=== PATIENT | male | born 1990 | race African-American/Black ===

== ENCOUNTER 2024-10-26 18:40 | Inpatient (IN) | payer MEDICAID, OTHER ==
[2024-10-26] MEDS ORDERED: MAG HYDROX/AL HYDROX/SIMETH 355 ML BOTTLE PO PRN (20:01)
[2024-10-26] MEDS ORDERED: ACETAMINOPHEN TAB 325 MG TAB PO PRN (20:01)
[2024-10-26] MEDS ORDERED: MAGNESIUM HYDROXIDE 2,400 MG/30 ML CUP PO PRN (20:01)
[2024-10-26] MEDS ORDERED: IBUPROFEN 600 MG TAB PO PRN (20:01)
[2024-10-26] MEDS ORDERED: HALOPERIDOL LACTATE 5 MG/ML 1 ML VIAL IM PRN (20:03)
[2024-10-26] MEDS ORDERED: LORazepam 2 MG/ML INJ IM PRN (20:03)
[2024-10-27] MEDS: haloperidoL 5 MG TAB PO PRN (01:01)
[2024-10-27] MEDS: LORazepam 1 MG TAB PO PRN (01:01)
[2024-10-27] MEDS: NICOTINE 14MG/24HR PATCH TRANSDERM SCH (09:06)
[2024-10-27] MEDS ORDERED: traZODone HCL 50 MG TAB PO PRN (12:04)
--- NOTE | 2024-10-27 12:11 | P.HP ---
Psychiatric H&P - . H&P Date: 10/27/24 History & Physical: Allergies Allergy/AdvReac Type Severity Reaction Status Date / Time No Known Allergies Allergy Verified 10/27/24 01:16 Vital Signs Temp 98.4 F 10/27/24 09:00 Pulse 109 H 10/27/24 09:00 Resp 16 10/27/24 09:00 BP 143/71 10/27/24 09:00 Pulse Ox 99 10/27/24 01:23 FiO2 Intake & Output 10/26/24 10/27/24 10/27/24 18:59 06:59 18:59 Weight 104.326 kg 10/27/24 11:45 IDENTIFYING DATA: Patient is a 34-year-old -[place] male, current lives with his mother in a house, he is he has no kids, he is unemployed not collecting any income HPI: Patient presented to the hospital as a transfer from [facility] as per EPS note "RN spoke with [facility], pt was approved with [facility] and . Pt is a transfer from [facility]. Pt was found by police bathing in a ditch. It is reported that pt is not currently homeless. Per Charting: Pt is responding to IS, nonsensical speech, not compliant with any medications/treatment. Pt has AH a good and a bad one. Pt seems to be religiously occupied. No PRNS or restraints .UDS +marijuana. ETOH <10. VSS. No reported medical conditions. NKDA. irregular labs WBC 11.94, neutrophils 8.59, anion 14.2, co2 20.8. Pt is medically cleared. COVID negative." Patient was seen today laying in bed agreeable to speak to tag writer. He appeared to be disheveled in appearance, poor hygiene and grooming. He claims that he came to the hospital because of "schizophrenia" when asked more about this he states that he was "trying to kick it" however he feels that "it did not work". He was responding to internal stimuli during the interview, talking to himself and looking away from tag writer gazing around the room. He claims that the "Lord spoke to me when I was playing a video game" and claims that the characters were also talking with him. He states that this has been going on for 2 to 3 weeks now. He claims that they were "reading my thoughts". He was fairly religiously preoccupied, asked tag writer if he was a "Tenriism". He claims that he also talks to demons. He is endorsing depression and anxiety mild. Has been on and off. Denies any issues with appetite at this time. Claims that the police brought him in because he was acting "suspicious" however patient was actually found in a ditch bathing himself. Patient denies any current suicidal or homicidal ideations intent or plan. At this time patient denies any visual hallucinations however did endorse auditory hallucinations. Patient denies any flight of ideas racing thoughts and increased in goal directed behavior. Patient admits to using marijuana regularly, claims that it is for "medical use" denies any other recreational drug use. PAST PSYCHIATRIC HISTORY: Patient has a history of schizophrenia. He claims that he has been on a few different medications in the past, claims that most recently he was on lithium Prolixin and Depakote however states that he has been off of them for several months. Claims that he was last psychiatrically hospi talized August 2023 in [facility]. Patient denies any psychiatric outpatient follow-up. Patient denies any history of suicide attempts in the past. PMH: as per ER note ALLERGIES: as per EMR CHEMICAL DEPENDENCY HISTORY: as per HPI FAMILY PSYCHIATRIC/SUBSTANCE USE HISTORY: Denies SOCIAL HISTORY: Patient was born and raised in [place] and also [facility]. 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 Denies any legal history. Claims that he currently lives with his mother in a house, he is he has no kids he is unemployed MENTAL STATUS EXAM: General Appearance: Patient appears to be balding, disheveled appearance, stated age is alert, responding to internal stimuli, bizarre at times. Patient appears to have poor hygiene and grooming. Behavior: Patient is seated without any agitated behavior. Responding to internal stimuli, bizarre Speech: Patient's speech is fluent and nonpressured. Mood/Affect: Patient reports their mood is depressed and anxious, affect is congruent and constricted. Suicidality/Homicidality: Patient denies having any homicidal ideation intent or plan. Denies any suicidal ideations intent or plan Perceptions: Patient denies any visual hallucinations admits to hearing voices. Though content/process: Patient is delusional, reasonably religiously preocc upied, loose associations. Memory and concentration: AOX3, grossly intact for the purposes of this session. Can spell "WORLD" backwards Judgment and insight: Poor STRENGTHS/WEAKNESSES: strength is that patient is resilient. Weakness is that patient has poor judgment and is impulsive INTELLECT: Average IMPRESSIONS: Schizophrenia Cannabis use disorder Noncompliant with medication regimen PLAN: -Patient is admitted under involuntary status to [facility]HU for stabilization of psychiatric symptoms and safety. Patient has not signed adult voluntary form and has not signed medication consent and is placed in patient's chart. A second certification was completed and along with petition will be filed for court. -Medications : Prolixin 2.5 mg twice daily for psychosis, will offer patient long-acting injection to help control symptoms and ensure compliance. Lithobid 450 mg nightly for mood stabilization, trazodone 50 mg nightly as needed for insomnia. -Ativan and Haldol PRN for agitation/aggression -Patient was counselled on substance abuse and its effect on his physical and mental health. Patient states they do not want to cut back on his marijuana use -Patient was informed of the risks, benefits and side effects of the medications . Patient did not signed med consent form and was placed in chart. Patient was offered medication information and declined it -Internal Medicine consult to perform medical evaluation and physical. -NRT -not needed as patient does not smoke -SW on board for discharge planning. Encourage patient to participate in groups to work on coping skills. Will await deferral and court date. 10/27/24 12:04
[2024-10-27] MEDS: LITHIUM CARBONATE ER 450 MG TABLET.ER PO SCH (21:06)
--- NOTE | 2024-10-28 11:39 | P.PN ---
Progress Note - Text Progress Note Date: 10/28/24 Interval history: Patient was seen wandering the hallways and was directable and agreeable to s peak with commercial lines underwriter. Patient claims that he is doing a bit better today, claims that the lithium did help. He also claims that the Prolixin has been helping however he is used to a higher dose. Appears to be less responding to internal stimuli, more goal oriented less bizarre during conversation. He is endorsing mild improvement in his anxiety and mood at this time. Claims that he slept on and off last night, has been eating well. At this time patient denies any suicidal or homicidal ideations intent or plan. Denies any Auditory or visual hallucinations. Patient denies any side effects from the medications and has been compliant with meds. Mental status exam: General Appearance: Patient appears to be unshaven, has a harris, balding, stated age is alert, directable, and cooperative. Behavior: No agitated behavior. Patient is calm and directable less bizarre today, more directable Speech: Patient's speech is fluent and nonpressured. Mood/Affect: Mood is improving mildly, affect is congruent and constricted. Suicidality/Homicidality: Patient denies having any suicidal or homicidal ideation intent or plan. Perceptions: Patient denies any auditory or visual hallucinations. Though content/process: There is no evidence of any delusional thought content and thought process is linear. Less bizarre, more goal oriented today Memory and concentration: AOX3, grossly intact for the purposes of this session Judgment and insight: Poor, improving mildly Assessment/Plan: Continue with current diagnosis. Patient continues to meet criteria for inpatient psychiatric admission for symptom stabilization and safety. Patient will be maintained on current psychotropic medication regimen, increasing Prolixin to 3 times daily dosing, change trazodone to 50 mg nightly. Monitor for medication compliance and for any psychotropic medication side effects. Will continue to monitor ongoing response to treatment. Encouraged participation in milieu.
--- NOTE | 2024-10-28 20:09 | P.CONS ---
History of Present Illness - Reason for Consult Consult date: 10/28/24 - History of Present Illness Patient is a 34-year-old male with schizophrenia as a transfer from [facility]. Patient was found by police standing in a ditch. Patient was seen and evaluated in mental health unit with MHU RN present. Medical history. Mitts to cannabis use. Denies any smoking or alcohol use. Denies fever, chills, headache, chest pain, shortness of breath, abdominal pain, urinary symptoms. Pertinent positives and negatives as discussed above, a complete review of systems was performed and all other systems are negative. Vitals: Signs Reviewed Physical Exam: General: nontoxic, no distress, appears at stated age Derm: warm, dry, intact Head: atraumatic, normocephalic, symmetric Eyes: EOMI, anicteric sclera Mouth: no lip lesion, mucus membranes moist Cardiovascular: S1 S2 reg, no murmur, rubs, or gallops Lungs: CTA bilateral, no rhonchi, no rales, no accessory muscle use Abdominal: soft, non-tender to palpataion, no appreciable organomegaly Extremities: no gross muscle atrophy, no edema, no contractures Neuro: Alert, Oriented, CNII-XII grossly intact, gait normal Psych: well appearing, appropriate affect Assessment and Plan: Cannabis use disorder Counseled patient on the importance of cessation Schizophrenia Defer management to primary psychiatric service Matt Cornell MD PGY-1 IM Dictation was produced using [employer] dictation software. please excuse any gra mmatical, word or spelling errors. I Discussed the case with the resident and agree with the resident's findings I edited the assessment and plan as necessary as documented in the resident's note. Medications and Allergies Home Medications Medication Instructions Recorded Confirmed Type No Known Home Medications 10/27/24 10/27/24 History Allergies Allergy/AdvReac Type Severity Reaction Status Date / Time No Known Allergies Allergy Verified 10/27/24 01:16 Physical Exam Vitals: Vital Signs Temp Pulse Pulse Resp BP BP Pulse Ox 10/28/24 08:03 98.1 F 95 151/92 100 10/27/24 21:00 97.1 F L 129 H 16 131/84
[2024-10-28] MEDS: traZODone HCL 50 MG TAB PO SCH (21:33)
--- NOTE | 2024-10-29 11:00 | P.PN ---
Progress Note - Text Progress Note Date: 10/29/24 Interval history: Patient was seen wandering the hallways and was directable and agreeable to s peak with policy writer typist. patient continues to be religiously preoccupied today. He referred to himself as a "crazy person". He also states that he has been talking to himself. He does claim to be more optimistic and more cheerful today. He claims that the medications have been helping and agreeable to have an increase in his Prolixin. He was seen earlier today wandering the hallways singing to himself and also talking to himself. Claims that he slept better last night, has been eating well. At this time patient denies any suicidal or homicidal ideations intent or plan. Denies any Auditory or visual hallucinations. Patient denies any side effects from the medications and has been compliant with meds. Mental status exam: General Appearance: Patient appears to be unshaven, has a harris, balding, stated age is alert, directable, and cooperative. Behavior: No agitated behavior. Patient is calm and directable less bizarre today, more directable Speech: Patient's speech is fluent and nonpressured. Mood/Affect: Mood is improving mildly, affect is congruent and appears to have a brighter affect Suicidality/Homicidality: Patient denies having any suicidal or homicidal ideation intent or plan. Perceptions: Patient denies any auditory or visual hallucinations. Though content/process: There is no evidence of any delusional thought content and thought process is linear. Less bizarre, more goal oriented today, religiously preoccupied Memory and concentration: AOX3, grossly intact for the purposes of this session Judgment and insight: Poor, improving mildly Assessment/Plan: Continue with current diagnosis. Patient continues to meet criteria for inpatient psychiatric admission for symptom stabilization and safety. Patient will be maintained on current psychotropic medication regimen, increasing Prolixin to 5mg bid dosing, Monitor for medication compliance and for any psychotropic medication side effects. Will continue to monitor ongoing response to treatment. Encouraged participation in milieu.
[2024-10-30] MEDS ORDERED: traZODone HCL 50 MG TAB PO PRN (11:03)
--- NOTE | 2024-10-30 11:08 | P.PN ---
Progress Note - Text Progress Note Date: 10/30/24 Interval History: Patient was seen today wandering the hallways, he was singing at times in the hallway. He was agreeable to speak to proposal writer in the office today. He appeared to be fairly bright in his affect. Denied any overnight complaints states that he slept about 7 hours. Claims that he has been eating well. He continues to be focused on discharge, we also spoke about his medications. He claims that he does not want to regularly have to take the trazodone at nighttime would prefer to take melatonin. He continues to be bizarre at times, has somewhat of an expansive affect. Less religiously preoccupied today not endorsing paranoia. Denies any suicidal homicidal ideations intent or plan denies any auditory or visual hallucinations. MENTAL STATUS EXAM: General Appearance: Patient appears to be balding, improving appearance, stated age is alert, responding to internal stimuli less today, less bizarre at times. Patient appears to have improving hygiene and grooming. Behavior: Patient is seated without any agitated behavior. Responding to internal stimuli, bizarre Speech: Patient's speech is fluent and nonpressured. Mood/Affect: Patient reports their mood is improving, affect is congruent Suicidality/Homicidality: Patient denies having any homicidal ideation intent o r plan. Denies any suicidal ideations intent or plan Perceptions: Patient denies any visual hallucinations, patient denies any auditory hallucinations Though content/process: Patient is less religiously preoccupied, bizarre at times content. More goal oriented and agreeable Memory and concentration: AOX3, grossly intact for the purposes of this session Judgment and insight: Poor, improving mildly IMPRESSIONS: Schizophrenia Cannabis use disorder Noncompliant with medication regimen PLAN: -Patient is admitted under involuntary status to MHU for stabilization of psychiatric symptoms and safety. Patient has not signed adult voluntary form and has not signed medication consent and is placed in patient's chart. -Medications : Increase Prolixin 7 mg twice daily for psychosis, will offer p atient long-acting injection to help control symptoms and ensure compliance. Increase [place] 600 mg nightly for mood stabilization, trazodone 50 mg nightly as needed for insomnia. Added melatonin 10 mg nightly for sleep -Ativan and Haldol PRN for agitation/aggression -NRT -not needed as patient does not smoke -SW on board for discharge planning. Encourage patient to participate in groups to work on coping skills. Patient is set to have his deferral today with the patent prosecution attorney, awaiting court date.
[2024-10-30] MEDS: MELATONIN 5 MG TABLET PO SCH (20:22)
[2024-10-30] MEDS: LITHIUM CARBONATE 300 MG CAP PO SCH (20:22)
--- NOTE | 2024-10-31 11:30 | P.PN ---
Progress Note - Text Progress Note Date: 10/31/24 Interval History: Patient was seen today wandering the hallways, he was singing at times in the hallway less today. He was agreeable to speak to property underwriter in the office today. He appeared to be fairly bright in his affect and more pleasant today. Denied any overnight complaints states that he slept about 5 hours. Claims that he has been eating well and trying to help nursing staff. claims that he spoke to his attroney and signed the deferral. also states that he is ok with being transitioned back onto the [facility] tomorrow. He continues to be bizarre at times, has somewhat of an expansive affect, this is improving mildly. Less religiously preoccupied today not endorsing paranoia. Denies any suicidal homicidal ideations intent or plan denies any auditory or visual hallucinations. MENTAL STATUS EXAM: General Appearance: Patient appears to be balding, improving appearance, stated age is alert, responding to internal stimuli less today, less bizarre at times. Patient appears to have improving hygiene and grooming. Behavior: Patient is seated without any agitated behavior. Responding to internal stimuli, bizarre, more pleasant today Speech: Patient's speech is fluent and nonpressured. Mood/Affect: Patient reports their mood is improving, affect is congruent improving Suicidality/Homicidality: Patient denies having any homicidal ideation intent or plan. Denies any suicidal ideations intent or plan Perceptions: Patient denies any visual hallucinations, patient denies any kiel tory hallucinations Though content/process: Patient is less religiously preoccupied, bizarre at times content. More goal oriented and agreeable Memory and concentration: AOX3, grossly intact for the purposes of this session Judgment and insight: Poor, improving mildly IMPRESSIONS: Schizophrenia Cannabis use disorder Noncompliant with medication regimen PLAN: -Patient is admitted under involuntary status to MHU for stabilization of psychiatric symptoms and safety. Patient has not signed adult voluntary form and has not signed medication consent and is placed in patient's chart. -Medications : Prolixin 7 mg twice daily for psychosis, will give prolixin D 37.5 mg IM tomorrow to help ensuire compliance. [place] 600 mg nightly for mood stabilization, trazodone 50 mg nightly as needed for insomnia. melatonin 10 mg nightly for sleep -Ativan and Haldol PRN for agitation/aggression -NRT -not needed as patient does not smoke -SW on board for discharge planning. Encourage patient to participate in groups to work on coping skills. Patient singed deferral with environmental attorney. likely discharge wednesday back home after pt is transitioned onto [facility].
[2024-11-01] MEDS: fluPHENAZine DECANOATE 25 MG/ML 5ML MDV IM SCH (10:15)
--- NOTE | 2024-11-01 14:34 | P.PN ---
Progress Note - Text Progress Note Date: 11/01/24 Interval History: Patient was seen today wandering the hallways. Patient appears to be a bit more pleasant today. He was less religiously preoccupied today. Claims that he is trying to go to groups. He states that he received the long-acting injection today tolerated it well. We spoke about tapering him off the Prolixin. Denied any overnight complaints states that he slept about 5-6 hours. Claims that he has been eating well. He continues to be bizarre at times, has somewhat of an expansive affect, this is improving mildly. Less religiously preoccupied today not endorsing paranoia. Denies any suicidal homicidal ideations intent or plan denies any auditory or visual hallucinations. Not endorsing any side effects or problems with the medications. MENTAL STATUS EXAM: General Appearance: Patient appears to be balding, improving appearance, stated age is alert, responding to internal stimuli less today, less bizarre at times. Patient appears to have improving hygiene and grooming. Behavior: Patient is seated without any agitated behavior. Responding to internal stimuli, bizarre, more pleasant today Speech: Patient's speech is fluent and nonpressured. Mood/Affect: Patient reports their mood is improving, affect is congruent improving Suicidality/Homicidality: Patient denies having any homicidal ideation intent or plan. Denies any suicidal ideations intent or plan Perceptions: Patient denies any visual hallucinations, patient denies any auditory hallucinations Though content/process: Patient is less religiously preoccupied, bizarre at times content. More goal oriented and agreeable Memory and concentration: AOX3, grossly intact for the purposes of this session Judgment and insight: Poor, improving mildly IMPRESSIONS: Schizophrenia Cannabis use disorder Noncompliant with medication regimen PLAN: -Patient is admitted under involuntary status to [facility] for stabilization of psychiatric symptoms and safety. Patient has not signed adult voluntary form and has not signed medication consent and is placed in patient's chart. -Medications : Will begin tapering off p.o. Prolixin, patient received prolixin D IM 37.5 mg IM on 11/01, next dose will be due on 11/15 every 2 weeks. [place] 600 mg nightly for mood stabilization, trazodone 50 mg nightly as needed for insomnia. melatonin 10 mg nightly for sleep. Will check lithium level Wednesday morning. -Ativan and Haldol PRN for agitation/aggression -NRT -not needed as patient does not smoke -SW on board for discharge planning. Encourage patient to participate in groups to work on coping skills. Patient singed deferral with trust and estates attorney. likely discharge wednesday back home after pt is transitioned onto [facility] and checked lithium level
[2024-11-02 07:54] VITALS: BP 122/79; PULSE 95; RESP 18; TEMP 96.7
--- NOTE | 2024-11-02 11:09 | P.DS ---
Providers Date of admission: 10/27/24 00:44 Expected date of discharge: 11/02/24 Attending physician: Johnie Joe MD Consults: 10/26/24 20:01 Consult Physician Routine Consulting Provider: [facility] Consult Reason/Comments: H&P Do you want consulting provider notified?: Yes Primary care physician: Stated None - Discharge Diagnosis(es) (1) Schizophrenia Current Visit: Yes Status: Acute Priority: High (2) Cannabis use disorder Current Visit: Yes Status: Acute Priority: Medium (3) Non compliance with medical treatment Current Visit: Yes Status: Acute Priority: High Hospital Course: Admission HPI: Admission note was completed by song writer "patient is a 34-year-old - [place] male, current lives with his mother in a house, he is he has no kids, he is unemployed not collecting any income. Patient presented to the hospital as a transfer from [facility] as per EPS note "RN spoke with intake, pt was approved with intake and . Pt is a transfer from [facility]. Pt was found by police bathing in a ditch. It is reported that pt is not currently homeless. Per Charting: Pt is responding to IS, nonsensical speech, not compliant with any medications/treatment. Pt has AH a good and a bad one. Pt seems to be religiously occupied. No PRNS or restraints .UDS +marijuana. ETOH <10. VSS. No reported medical conditions. NKDA. irregular labs WBC 11.94, neutrophils 8.59, anion 14.2, co2 20.8. Pt is medically cleared. COVID negative." Patient was seen today laying in bed agreeable to speak to song writer. He appeared to be disheveled in appearance, poor hygiene and grooming. He claims that he came to the hospital because of "schizophrenia" when asked more about this he states that he was "trying to kick it" however he feels that "it did not work". He was responding to internal stimuli during the interview, talking to himself and looking away from song writer gazing around the room. He claims that the "Lord spoke to me when I was playing a video game" and claims that the characters were also talking with him. He states that this has been going on for 2 to 3 weeks now. He claims that they were "reading my thoughts". He was fairly religiously preoccupied, asked song writer if he was a "Adventism". He claims that he also talks to demons. He is endorsing depression and anxiety mild. Has been on and off. Denies any issues with appetite at this time. Claims that the police brought him in because he was acting "suspicious" however patient was actually found in a ditch bathing himself. Patient denies any current suicidal or homicidal ideations intent or plan. At this time patient denies any visual hallucinations however did endorse auditory hallucinations. Patient denies any flight of ideas racing thoughts and increased in goal directed behavior. Patient admits to using marijuana regularly, claims that it is for "medical use" denies any other recreational drug use." Hospital course: Upon admission to the unit patient was admitted involuntarily on a petition and certificate and a second certificate was completed and faxed to the courts. Patient ended up signing a deferral with the family law attorney and agreeing to treatment. Patient was initially bizarre, responding to internal stimuli, floridly psychotic however with time and treatment patient got along well with other patients on the unit and followed unit protocol. Patient was compliant with the medications and denied any side effects throughout hospital course. Patient was started on Prolixin increased to a dose of 7 mg twice daily p.o then was agreeable to transition onto Prolixin D IM, given 37.5 mg on 11/01, next dose will be doing every 2 weeks on 11/15. Patient was also started on lithium p.o. 600 mg nightly for mood stabilization, trazodone as needed for insomnia, melatonin 10 mg nightly for sleep patient spoke of his stressors and engaged in therapy both group/activity therapy. Patient was also seen by medical team for history and physical exam. Throughout the course of the hospitalization patient gradually improved with regards to mood, anxiety, psychosis, sleep and became more future oriented with improved insight and judgment. On the day of discharge patient denied any suicidal or homicidal ideations intent or plan denied any auditory or visual hallucinations. Patient endorsed wanting to live for their health and family. The patient denied any access to guns or weapons. Patient denied any paranoia and did not endorse any delusions. Patient does have a significant history of substance abuse and was counseled on abstaining from all substances including alcohol and marijuana. Patient elected to do outpatient substance use treatment program through their outpatient provider. Patient was also counseled on the medications and need for regular compliance and was encouraged to follow- up with their outpatient appointment for mental health and also for primary care. Prior to discharge a family meeting will be arranged by certified social workers in health care to answer any questions and ensure safety upon discharge incuding making sure that guns/weapons are either removed from the home or locked away. Mental status exam: General Appearance: Patient appears to be balding, stated age is alert, pleasant, and cooperative. Patient is in no acute distress and has improved hygiene and grooming Behavior: Patient is calmly seated without any agitated behavior. Speech: Patient's speech is fluent and nonpressured. Mood/Affect: Patient reports their mood is "good", affect is congruent and euthymic. Suicidality/Homicidality: Patient denies having any suicidal or homicidal ideation intent or plan. Perceptions: Patient denies any auditory or visual hallucinations. Though content/process: There is no evidence of any delusional thought content and thought process is linear and goal-directed. More future oriented Memory and concentration: AOX3, grossly intact for the purposes of this session. Can spell "WORLD" backwards correctly. Judgment and insight: improved with guarded prognosis Impression: Schizophrenia Cannabis use disorder Noncompliance with medication regimen Plan: -Continue with discharge today as patient has improved and stabilized psychiatrically and is not currently an imminent threat to themself and/or others. -Continue medications: Prolixin D IM, given 37.5 mg on 11/01, next dose will be doing every 2 weeks on 11/15. Discontinue p.o. Prolixin. Moore 600 mg nightly for mood stabilization, melatonin 10 mg nightly for sleep. -Patient was counseled on the need for medication compliance and appropriate follow-up at mental health and also primary care for medical issues. Patient verbalized understanding and agreed. -Social work to help coordinate patients discharge today as patient will be discharged back home to preadmission address. also to ensure safe home environment that guns/weapons are either removed from the home or locked away. Social work also to arrange for patients follow up appointments with [facility] for psychiatric care along with follow up with primary care provider. -Patient counseled on abstaining from recreational drugs and marijuana and alcohol. Was informed/educated on the adverse effects on their physical and mental health. Patient verbally agreed and understood. Patient was offered substance abuse treatment however declined at this time. -Patient was instructed to return to the hospital or seek immediate medical care if their psychiatric or medical symptoms do worsen or reoccur. Allergies Allergy/AdvReac Type Severity Reaction Status Date / Time No Known Allergies Allergy Verified 10/27/24 01:16 Vital Signs Temp 96.7 F L 11/02/24 07:53 Pulse 95 11/02/24 07:53 Resp 18 11/02/24 07:53 BP 122/79 11/02/24 07:53 Pulse Ox 99 11/01/24 21:00 FiO2 Patient Condition at Discharge: Stable Plan - Discharge Summary Discharge Rx Participant: Yes New Discharge Prescriptions: New Melatonin 10 mg PO HS 30 Days #60 tab Moore Carbonate 600 mg PO HS 30 Days #60 cap Ibuprofen [Motrin] 600 mg PO Q6HR PRN tab PRN Reason: Moderate Pain (Scale 4 To 6) fluPHENAZine decanoate [Prolixin Decanoate] 37.5 mg IM Q14D #1 ml Discharge Medication List Ibuprofen [Motrin] 600 mg PO Q6HR PRN tab 11/02/24 [Rx] Moore Carbonate 600 mg PO HS 30 Days #60 cap 11/02/24 [Rx] Melatonin 10 mg PO HS 30 Days #60 tab 11/02/24 [Rx] fluPHENAZine decanoate [Prolixin Decanoate] 37.5 mg IM Q14D #1 ml 11/02/24 [Rx] Activity/Diet/Wound Care/Special Instructions: [facility] Discharge Info Avoid the use of street drugs and alcohol. Take all medications as prescribed. When you are in need of refills on your medications, please contact your outpatient medical provider and/or outpatient psychiatrist. Please go to your scheduled outpatient appointments for aftercare treatment. If symptoms return or become worse, call the crisis line at or and/or visit the nearest emergency room for assistance. National Suicide and Crisis Lifeline - call or text 988 Discharge Disposition: HOME SELF-CARE
== END 2024-11-02 14:48 | disposition home or self-care (01) | DRG 750 ==
LOC: 3MHU 10-27 00:44
PROVIDERS: ADMIT Psychiatry & Neurology Psychiatry; ATTEND Psychiatry & Neurology Psychiatry
DX: F20.9 Schizophrenia, unspecified (principal); F12.10 Cannabis abuse, uncomplicated; F32.A Depression, unspecified; Z91.148 Patient's other noncompliance with medication regimen for other reason; F41.9 Anxiety disorder, unspecified; G47.00 Insomnia, unspecified; Z56.0 Unemployment, unspecified; Z59.82 Transportation insecurity